=== PATIENT | female | born 1995 | race Two or more races ===

== ENCOUNTER 2020-09-29 00:23 | Emergency (ER) | payer MEDICAID ==
[~2020-09-29] VITALS: Ht 157.5 cm; Wt 68.0 kg
[2020-09-29 00:42] VITALS: BP 131/89
== END 2020-09-29 01:15 | disposition left against medical advice (07) ==
LOC: EDBD 00:23 → ER 00:29
DX: R51.9 Headache, unspecified (principal); Z53.21 Procedure and treatment not carried out due to patient leaving prior to being seen by health care provider